=== PATIENT | male | born 1985 | race Caucasian/White ===

== ENCOUNTER 2016-11-03 12:05 | Emergency (ER) | payer OTHER ==
[2016-11-03] MEDS ORDERED: IBUPROFEN 800 MG TABLET PO STA (12:28)
[2016-11-03] MEDS ORDERED: ALBUTEROL NEB 2.5 MG/3 ML INH STA (12:28)
[2016-11-03] MEDS ORDERED: ALBUTEROL NEB 2.5 MG/3 ML INH ONE (12:36)
[2016-11-03] MEDS ORDERED: IBUPROFEN 800 MG TABLET PO ONE (13:07)
== END 2016-11-03 13:19 | disposition home or self-care (01) ==
DX: J20.8 Acute bronchitis due to other specified organisms (principal); R03.0 Elevated blood-pressure reading, without diagnosis of hypertension
CPT/HCPCS: 71020; 87070; 87430; 94640; 99282; 99284; A9270; J7613

== ENCOUNTER 2017-05-08 14:58 | Emergency (ER) | payer OTHER ==
[2017-05-08 15:10] VITALS: BP 120/71
--- NOTE | 2017-05-08 15:59 | ED Physician Documentation ---
PD HPI URI - Stated complaint Stated Complaint: SORE THROAT, CONGESTION, HEADACHE - Chief complaint Chief Complaint: Heent - History obtained from History obtained from: Patient, Family - History of Present Illness Timing - onset: Yesterday Timing duration: Days (2) Timing details: Gradual onset Pain level max: 8 Pain level now: 8 Associated symptoms: Chills, Nasal congestion, Rhinorrhea, Sinus pain, Sore throat. No: Fever, Sweats, Ear pain, Swollen nodes, Dry cough, Productive cough , Hemoptysis, Chest pain, Dyspnea Contributing factors: No: Sick contact, Travel, Immunocompromised, Unimmunized, COPD / asthma Improves by: Rest Worsened by: Other (swallowing) Similar symptoms before: Has not had sx before Recently seen: Not recently seen Review of Systems Constitutional: denies: Fever, Chills Nose: reports: Rhinorrhea / runny nose, Congestion Respiratory: denies: Cough GI: denies: Vomiting Skin: denies: Rash Neurologic: denies: Headache PD PAST MEDICAL HISTORY - Past Medical History Past Medical History: No Cardiovascular: None Respiratory: None Endocrine/Autoimmune: None GI: None : None HEENT: None Psych: None Musculoskeletal: Other Derm: None - Past Surgical History Past Surgical History: Yes - Present Medications Home Medications: Ambulatory Orders Medication Instructions Recorded Confirmed Cetirizine HCl/Pseudoephedrine 1 each PO BID PRN #30 tab.er.12h 05/08/17 [Zyrtec-D Tablet] Esomeprazole Magnesium [Nexium] 40 mg PO DAILY 05/08/17 05/08/17 Ibuprofen [Motrin] 800 mg PO Q8H PRN #30 tablet 05/08/17 Valacyclovir HCl [Valacyclovir] 250 mg PO DAILY 05/08/17 05/08/17 - Allergies Allergies/Adverse Reactions: Allergies Allergy/AdvReac Type Severity Reaction Status Date / Time morphine Allergy Mild Itching Verified 05/08/17 15:10 - Social History Does the pt smoke?: No Smoking Status: Never smoker Does the pt drink ETOH?: Yes Does the pt have substance abuse?: No - Immunizations Immunizations are current?: Yes - POLST Patient has POLST: No PD ED PE NORMAL - Vitals Vital signs reviewed: Yes - General General: Alert and oriented X 3, No acute distress, Well developed/nourished - HEENT HEENT: PERRL, Ears normal, Moist mucous membranes, Other (Moderate posterior oropharyngeal erythema without tonsillar exudates. Uvula midline. No trismus.) - Neck Neck: Supple, no meningeal sign, Other (Shotty anterior cervical lymphadenopathy ) - Cardiac Cardiac: RRR, Strong equal pulses - Respiratory Respiratory: No respiratory distress, Clear bilaterally - Abdomen Abdomen: Soft, Non tender - Derm Derm: Warm and dry - Neuro Neuro: Alert and oriented X 3 Results - Vitals Vitals: Vital Signs - 24 hr 05/08/17 15:07 Temperature 36.8 C Heart Rate 71 Respiratory 14 Rate Blood Pressure 120/71 O2 Saturation 100 Oxygen O2 Source Room air - Labs Labs: Laboratory Tests 05/08/17 15:57 Group A Strep Rapid Negative PD MEDICAL DECISION MAKING - ED course Complexity details: reviewed results, re-evaluated patient, considered differential, d/w patient, d/w family ED course: Patient is a well-appearing, nontoxic 31-year-old male who presents to the emergency department with what appears to be a viral syndrome. Has nasal congestion, rhinorrhea and what appears to be a viral pharyngitis. Will place on decongestants for home. Given dexamethasone here for the pharyngitis. Strep is negative. No evidence of pneumonia clinically. No fevers. Patient counseled regarding signs and symptoms for which I believe and urgent re- evaluation would be necessary. Patient with good understanding of and agreement to plan and is comfortable going home at this time This document was made in part using voice recognition software. While efforts are made to proofread this document, sound alike and grammatical errors may occur. Departure - Departure Disposition: 01 Home, Self Care Clinical Impression: Viral URI Condition: Good Instructions: ED Viral Syndrome Follow-Up: your,doctor in 1 week [Other] Prescriptions: Ibuprofen [Motrin] 800 mg PO Q8H PRN #30 tablet PRN Reason: PAIN &/OR FEVER Cetirizine HCl/Pseudoephedrine [Zyrtec-D Tablet] 1 each PO BID PRN #30 tab.er.12h PRN Reason: Nasal Congestion Comments: Drink plenty of fluids. Return if you worsen. Your rapid strep is negative today and the swab was sent for a culture as well. If this turns positive, you will receive a phone call in approximately 2-3 days. Forms: Activity restrictions Discharge Date/Time: 05/08/17 16:43
[2017-05-08] MEDS: IBUPROFEN 800 MG TABLET PO STA (16:10)
[2017-05-08] MEDS: DEXAMETHASONE 10 MG/ML VIAL PO STA (16:10)
[2017-05-08] MEDS ORDERED: DEXAMETHASONE 10 MG/ML VIAL ONE (16:11)
[2017-05-08] MEDS ORDERED: CHERRY SYRUP 10 ML UDC PO ONE (16:12)
[2017-05-08] MEDS ORDERED: IBUPROFEN 800 MG TABLET PO ONE (16:12)
[2017-05-08 16:26] LABS: RAPID STREP SCREEN REAGENT QC YELLOW (YELLOW)
== END 2017-05-08 16:43 | disposition home or self-care (01) ==
LOC: ED 14:58
DX: J06.9 Acute upper respiratory infection, unspecified (principal)
CPT/HCPCS: 87070; 87430; 99283

== ENCOUNTER 2017-07-05 14:54 | Emergency (ER) | payer OTHER ==
[2017-07-05] MEDS ORDERED: KETOROLAC 60 MG/2 ML VIAL IM STA (15:13)
--- NOTE | 2017-07-05 15:16 | ED Physician Documentation ---
PD HPI LOWER EXT INJURY - Stated complaint Stated Complaint: ANKLE INJ - Chief complaint Chief Complaint: Ext Problem - History obtained from History obtained from: Patient - History of Present Illness PD HPI LOW EXT INJURY LOCATION: Left, Ankle Type of injury: Other (patient states that his L ankle began to hurt a few days ago after a 10mile run. Has had continued pain over the past few days. Tried epsom salts and rest without relief.) Where injury occurred: Home Timing - onset: How many days ago (4) Timing - duration: Days (4) Timing - details: Gradual onset Pain level max: 8 Pain level now: 6 Improved by: Rest, Ice, Immobilization Worsened by: Moving, Other (walking) Associated symptoms: No: Weakness, Numbness, Tingling, Swelling Similar symptoms before: Diagnosis (L ankle sprain x2) Recently seen: Not recently seen Review of Systems Musculoskeletal: denies: Neck pain, Back pain Neurologic: denies: Focal weakness, Numbness PD PAST MEDICAL HISTORY - Past Medical History Cardiovascular: None Respiratory: None Endocrine/Autoimmune: None GI: None : None HEENT: None Psych: None Musculoskeletal: Other Derm: None - Past Surgical History Past Surgical History: Yes - Present Medications Home Medications: Ambulatory Orders Medication Instructions Recorded Confirmed Esomeprazole Magnesium [Nexium] 40 mg PO DAILY 05/08/17 07/05/17 Meloxicam [Mobic] 15 mg PO DAILY PRN #20 tablet 07/05/17 [place]-3/Dha/Epa/Fish Oil [Fish Oil 1 each PO DAILY 07/05/17 07/05/17 1,000 mg Softgel] - Allergies Allergies/Adverse Reactions: Allergies Allergy/AdvReac Type Severity Reaction Status Date / Time morphine Allergy Mild Itching Verified 07/05/17 15:02 - Social History Does the pt smoke?: No Smoking Status: Never smoker Does the pt drink ETOH?: Yes Does the pt have substance abuse?: No - Immunizations Immunizations are current?: Yes - POLST Patient has POLST: No PD ED PE NORMAL - Vitals Vital signs reviewed: Yes - General General: Alert and oriented X 3, No acute distress - Derm Derm: Warm and dry - Extremities Extremities: Other (L ankle - mild TTP over the lateral malleolus. ) - Neuro Neuro: Alert and oriented X 3 - Psych Psych: Normal mood, Normal affect Results - Vitals Vitals: Vital Signs - 24 hr 07/05/17 07/05/17 15:01 16:21 Temperature 36.8 C Heart Rate 56 L 59 L Respiratory 16 18 Rate Blood Pressure 130/76 120/75 O2 Saturation 99 Oxygen O2 Source Room air - Rads (name of study) L ankle xray Radiology: Prelim report reviewed, EMP read contemporaneously, See rad report ( normal) PD MEDICAL DECISION MAKING - ED course Complexity details: reviewed results, re-evaluated patient, considered differential, d/w patient ED course: Patient is a 32-year-old male who presents to the emergency department with a left ankle injury after running 10 miles a few days ago. Has continued pain. No acute findings on x-ray. Placed in a gel splint for comfort and given crutches. Will place on NSAIDs for home and follow-up with his doctor. Patient counseled regarding signs and symptoms for which I believe and urgent re -evaluation would be necessary. Patient with good understanding of and agreement to plan and is comfortable going home at this time This document was made in part using voice recognition software. While efforts are made to proofread this document, sound alike and grammatical errors may occur. All leg compartments are soft. Neurovascularly intact Departure - Departure Disposition: 01 Home, Self Care Clinical Impression: Left ankle sprain Qualifiers: Encounter type: initial encounter Involved ligament of ankle: unspecified ligament Qualified Code(s): S93.402A - Sprain of unspecified ligament of left ankle, initial encounter Condition: Good Instructions: ED Sprain Ankle W X Ray Follow-Up: your,doctor in 1 week [Other] Prescriptions: Meloxicam [Mobic] 15 mg PO DAILY PRN #20 tablet PRN Reason: pain Comments: Return if you worsen. You may bear weight as tolerated. You may benefit from physical therapy ordered by your doctor as well. Discharge Date/Time: 07/05/17 16:21
[2017-07-05] MEDS ORDERED: KETOROLAC 60 MG/2 ML VIAL ONE (15:25)
--- NOTE | 2017-07-05 16:16 | XRAY Preliminary Report ---
Exam: XR ANKLE 3 VIEW LT IMPRESSION: No evidence of fracture or dislocation. [facility] SITE ID: [id number]
--- NOTE | 2017-07-05 16:18 | XRAY Report ---
EXAM: LEFT ANKLE RADIOGRAPHY EXAM DATE: 07/05/2017 04:08 PM. CLINICAL HISTORY: Left ankle pain COMPARISON: None. TECHNIQUE: 3 views. FINDINGS: Bones: No fracture or focal bony lesion. Joints: No evidence of dislocation. Soft Tissues: No unexpected soft tissue findings. IMPRESSION: No evidence of fracture or dislocation. [facility] Referring Provider Line: [phone] SITE ID: [id number]
[2017-07-05 16:22] VITALS: BP 120/75
== END 2017-07-05 16:21 | disposition home or self-care (01) ==
LOC: ED 14:54
DX: S93.402A Sprain of unspecified ligament of left ankle, initial encounter (principal); X58.XXXA Exposure to other specified factors, initial encounter; Y93.02 Activity, running
CPT/HCPCS: 96372; 99283

== ENCOUNTER 2018-08-29 13:10 | Emergency (ER) | payer OTHER ==
[2018-08-29 13:20] VITALS: BP 141/79
[2018-08-29] MEDS ORDERED: CYCLOBENZAPRINE 10 MG TABLET PO STA (14:03)
[2018-08-29] MEDS ORDERED: DEXAMETHASONE 10 MG/ML VIAL PO STA (14:03)
--- NOTE | 2018-08-29 14:05 | ED Physician Documentation ---
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 This is continued since that time. Does improve slightly with massage, Epsom salts and Motrin. He also saw a chiropractor but this did not help. No numbness or tingling. No fevers. No trauma. Better with rest and worse with movement Review of Systems Constitutional: denies: Fever, Chills Throat: denies: Sore throat Cardiac: denies: Chest pain / pressure Respiratory: denies: Cough GI: denies: Vomiting Neurologic: denies: Focal weakness, Numbness PD PAST MEDICAL HISTORY - Past Medical History Past Medical History: No Cardiovascular: None Respiratory: None Neuro: None Endocrine/Autoimmune: None GI: None : None HEENT: None Psych: None Musculoskeletal: None Derm: None - Past Surgical History Past Surgical History: Yes - Present Medications Home Medications: Ambulatory Orders Medication Instructions Recorded Confirmed Esomeprazole Magnesium [Nexium] 40 mg PO DAILY 05/08/17 07/05/17 Meloxicam [Mobic] 15 mg PO DAILY PRN #20 tablet 07/05/17 [place]-3/Dha/Epa/Fish Oil [Fish Oil 1 each PO DAILY 07/05/17 07/05/17 1,000 mg Softgel] Cyclobenzaprine [Flexeril] 10 mg PO TID PRN #20 tablet 08/29/18 - Allergies Allergies/Adverse Reactions: Allergies Allergy/AdvReac Type Severity Reaction Status Date / Time morphine Allergy Mild Itching Verified 08/29/18 13:19 - Social History Does the pt smoke?: No Smoking Status: Never smoker Does the pt drink ETOH?: Yes ETOH Use: Beer Does the pt have substance abuse?: No - Immunizations Immunizations are current?: Yes - POLST Patient has POLST: No PD ED PE NORMAL - Vitals Vital signs reviewed: Yes - General General: Alert and oriented X 3, No acute distress - HEENT HEENT: Moist mucous membranes - Neck Neck: Supple, no meningeal sign, No bony TTP - Cardiac Cardiac: RRR - Respiratory Respiratory: No respiratory distress, Clear bilaterally - Back Back: No spinal TTP, Other (Tender to palpation to the right side of T2-3. No swelling. No skin changes. No bony tenderness. Otherwise normal exam) - Derm Derm: Warm and dry - Neuro Neuro: No motor deficit, No sensory deficit Results - Vitals Vitals: Vital Signs - 24 hr 08/29/ 13:16 Temperature 36.4 C L Heart Rate 60 Respiratory 16 Rate Blood Pressure 141/79 H O2 Saturation 98 Oxygen O2 Source Room air PD MEDICAL DECISION MAKING - ED course Complexity details: considered differential, d/w patient, d/w family ED course: 33-year-old male with an acute myofascial strain. Will place on muscle relaxants for home and follow-up with his doctor. He is well-appearing, nontoxic. Afebrile. No neurological deficits. Patient counseled regarding signs and symptoms for which I believe and urgent re-evaluation would be necessary. Patient with good understanding of and agreement to plan and is comfortable going home at this time This document was made in part using voice recognition software. While efforts are made to proofread this document, sound alike and grammatical errors may occur. Departure - Departure Disposition: 01 Home, Self Care Clinical Impression: Acute myofascial strain Condition: Good Instructions: ED Neck Back Pain General Follow-Up: BALAJI Mcallister [Provider Group] - Within 1 week Prescriptions: Cyclobenzaprine [Flexeril] 10 mg PO TID PRN #20 tablet PRN Reason: Spasms Comments: Return if you worsen. You can continue motrin at home. Do not drive or operate heavy machinery while taking the Flexeril as this may make you drowsy.
[2018-08-29] MEDS ORDERED: CHERRY SYRUP 10 ML UDC PO ONE (14:09)
== END 2018-08-29 14:11 | disposition home or self-care (01) ==
LOC: ED 13:10
DX: S29.012A Strain of muscle and tendon of back wall of thorax, initial encounter (principal); X50.1XXA Overexertion from prolonged static or awkward postures, initial encounter; Y93.84 Activity, sleeping
CPT/HCPCS: 99283; A9270

== ENCOUNTER 2018-09-05 11:54 | Emergency (ER) | payer OTHER ==
[2018-09-05] MEDS ORDERED: LIDOCAINE 1%-EPI 1:100000 30 ML MDV SUBQ STA (13:16)
--- NOTE | 2018-09-05 13:19 | ED Physician Documentation ---
History of Present Illness - Stated complaint Stated Complaint: MALE - Chief complaint Chief Complaint: General - History obtained from History obtained from: Patient - History of Present Illness Timing: Other (2 weeks painful hemohorroid. No bleeding. Has had them I/Ded in past with relief.) Review of Systems Constitutional: reports: Reviewed and negative Cardiac: reports: Reviewed and negative Respiratory: reports: Reviewed and negative PD PAST MEDICAL HISTORY - Past Medical History Cardiovascular: None Respiratory: None Neuro: None Endocrine/Autoimmune: None GI: None : None HEENT: None Psych: None Musculoskeletal: None Derm: None - Past Surgical History Past Surgical History: Yes - Present Medications Home Medications: Ambulatory Orders Medication Instructions Recorded Confirmed Esomeprazole Magnesium [Nexium] 40 mg PO DAILY 05/08/17 07/05/17 Meloxicam [Mobic] 15 mg PO DAILY PRN #20 tablet 07/05/17 Cyclobenzaprine [Flexeril] 10 mg PO TID PRN #20 tablet 08/29/18 - Allergies Allergies/Adverse Reactions: Allergies Allergy/AdvReac Type Severity Reaction Status Date / Time morphine Allergy Mild Itching Verified 09/05/18 12:23 - Social History Does the pt smoke?: No Smoking Status: Never smoker Does the pt drink ETOH?: Yes Does the pt have substance abuse?: No - Immunizations Immunizations are current?: Yes - POLST Patient has POLST: No PD ED PE NORMAL - Vitals Vital signs reviewed: Yes - General General: Alert and oriented X 3, No acute distress - Rectal Rectal: Other (Lg R sided thrombosed hemorrhoid.) - Derm Derm: Normal color, Warm and dry - Neuro Neuro: Alert and oriented X 3, Normal speech Results - Vitals Vitals: Vital Signs - 24 hr 09/05/18 09/05/18 12:19 13:18 Temperature 36.4 C L 36.8 C Heart Rate 82 77 Respiratory 16 20 Rate Blood Pressure 144/92 H 139/90 H O2 Saturation 98 97 Oxygen O2 Source Room air Procedures - General procedure General procedure: After informed consents the base of the hemorrhoid was infiltrated with 10 mL's of 1% lidocaine with epinephrine. After an appropriate time for full anesthetic the hemorrhoid was incised with 11 blade and the clot was evacuated. Departure - Departure Disposition: 01 Home, Self Care Clinical Impression: Hemorrhoids, thrombosed Condition: Good Record reviewed to determine appropriate education?: Yes Instructions: ED Hemorrhoids Comments: Call your doctor to arrange a follow-up appointment, make the next available appointment. In the interim, return anytime if worse or if new symptoms develop. Your blood pressure was elevated today on check into the emergency department. This does not mean that you have hypertension, it is a common phenomenon to come to the emergency department and have elevated blood pressure. I recommend that you see your primary care physician within the week to have it rechecked when you are feeling better.
[2018-09-05 15:05] VITALS: BP 158/106
== END 2018-09-05 14:59 | disposition home or self-care (01) ==
LOC: ED 11:54
DX: K64.5 Perianal venous thrombosis (principal); R03.0 Elevated blood-pressure reading, without diagnosis of hypertension
CPT/HCPCS: 46083; 99283

== ENCOUNTER 2018-11-12 12:52 | Emergency (ER) | payer OTHER ==
[2018-11-12 13:06] VITALS: BP 147/82
--- NOTE | 2018-11-12 13:23 | ED Physician Documentation ---
PD HPI URI - Stated complaint Stated Complaint: THROAT PX/LUMPS - Chief complaint Chief Complaint: Heent - History obtained from History obtained from: Patient - History of Present Illness Timing - onset: How many days ago (2-3) Timing duration: Days (2-3) Timing details: Gradual onset, Still present Associated symptoms: Sore throat, Swollen nodes. No: Fever, Nasal congestion, Dry cough, NVD Contributing factors: No: Sick contact (His 2 kids and have more URI symptoms without sore throat.) Similar symptoms before: Diagnosis (strep throat in past few years) Recently seen: Not recently seen Review of Systems Constitutional: denies: Fever Nose: denies: Rhinorrhea / runny nose, Congestion Throat: reports: Sore throat Respiratory: denies: Cough GI: denies: Vomiting, Diarrhea PD PAST MEDICAL HISTORY - Past Medical History Cardiovascular: None Respiratory: None Neuro: None Endocrine/Autoimmune: None GI: None : None HEENT: None Psych: None Musculoskeletal: None Derm: None - Past Surgical History Past Surgical History: Yes - Present Medications Home Medications: Ambulatory Orders Medication Instructions Recorded Confirmed Esomeprazole Magnesium [Nexium] 40 mg PO DAILY 05/08/17 07/05/17 Amoxicillin 500 mg PO TID #21 capsule 11/12/18 Dexamethasone [Decadron] 4 mg PO DAILY #5 tablet 11/12/18 Hydrocodone/Acetaminophen [[place] 1 each PO Q6H PRN #10 tablet 11/12/18 5-325 Tablet] - Allergies Allergies/Adverse Reactions: Allergies Allergy/AdvReac Type Severity Reaction Status Date / Time morphine Allergy Mild Itching Verified 09/05/18 12:23 - Social History Does the pt smoke?: No Smoking Status: Never smoker Does the pt drink ETOH?: Yes Does the pt have substance abuse?: No - Immunizations Immunizations are current?: Yes - POLST Patient has POLST: No PD ED PE NORMAL - Vitals Vital signs reviewed: Yes - General General: Alert and oriented X 3, Well developed/nourished, Other (hurts swallowing) - HEENT HEENT: No: Pharynx benign (There is moderate redness without just spots of exudates noted in the tonsillar area. There is mild anterior adenopathy.) - Neck Neck: Supple, no meningeal sign - Cardiac Cardiac: RRR, No murmur - Respiratory Respiratory: Clear bilaterally - Abdomen Abdomen: Soft, Non tender - Derm Derm: Normal color, Warm and dry, No rash Results - Vitals Vitals: Oxygen O2 Source Room air - Labs Labs: Laboratory Tests 11/12/18 13:10 Group A Strep Rapid POSITIVE H PD MEDICAL DECISION MAKING - ED course Complexity details: reviewed results (Positive strep test), considered differential, d/w patient Departure - Departure Disposition: 01 Home, Self Care Clinical Impression: Acute streptococcal pharyngitis Condition: Stable Record reviewed to determine appropriate education?: Yes Instructions: ED Strep Pharyngitis Conf Follow-Up: DONAL JUAREZ [Primary Care Provider] - Prescriptions: Amoxicillin 500 mg PO TID #21 capsule Dexamethasone [Decadron] 4 mg PO DAILY #5 tablet Hydrocodone/Acetaminophen [[place] 5-325 Tablet] 1 each PO Q6H PRN #10 tablet PRN Reason: Pain Comments: Drink lots of fluids. Tylenol or ibuprofen if needed for fevers and mild pains. Add pain medicine if needed. Your strep test is positive so take amoxicillin 3 times a day for a week. You can decrease inflammation and pain with Decadron steroid daily as well for the next several days. Recheck if not improved over the next few days. I wrote a note for off work today. You should be able to resume work after a day on the antibiotics. Forms: Activity restrictions Discharge Date/Time: 11/12/18 14:27
[2018-11-12] MEDS ORDERED: AMOXICILLIN 250 MG CAPSULE PO STA (13:42)
[2018-11-12] MEDS ORDERED: HYDROcod/ACETAM 5/325 MG TABLET PO STA (13:42)
[2018-11-12] MEDS ORDERED: DEXAMETHASONE 10 MG/ML VIAL PO STA (13:42)
[2018-11-12] MEDS ORDERED: CHERRY SYRUP 10 ML UDC PO ONE (14:12)
== END 2018-11-12 14:27 | disposition home or self-care (01) ==
LOC: ED 12:52
DX: J02.0 Streptococcal pharyngitis (principal)
CPT/HCPCS: 87430; 99283; A9270